=== PATIENT | male | born 1970 | race Caucasian/White ===

== ENCOUNTER 2021-01-05 21:03 | Observation (INO) | payer BC, SELFPAY ==
--- NOTE | ~2021-01-05 | XR_ITS ---
XR chest 2V DATE: 01/05/2021 21:27 INDICATION: Medial chest tightness. Recent hypertension. TECHNIQUE: PA and lateral views COMPARISON: 06/14/2015 PA and lateral chest FINDINGS: Normal heart size. No hilar or mediastinal enlargement. No pulmonary infiltrate or consol idation, pulmonary vascular congestion or pleural effusion or pneumothorax. Resection of lateral aspect of the right clavicle. IMPRESSION: No active cardiopulmonary disease Reviewed, dictated and finalized at location A.
--- NOTE | ~2021-01-05 | NM_ITS ---
EXAMINATION: NM stress w perf spect multi DATE: 01/06/2021 12:38 INDICATION: Chest pain. TECHNIQUE: Rest images were obtained following intravenous administration of 9.84 mCi Tc99m tetrofosm in (Myoview). The patient performed an exercise activity. At peak exercise, 30.6 mCi Tc99m tetrofosmi n (Myoview) was administered intravenously, and stress images were obtained. Data was reconstructed i nto short axis and horizontal and vertical long axis SPECT images. Gated SPECT images were also obtai bill. COMPARISON: None. FINDINGS: There is no definite reversible or fixed perfusion abnormality to suggest ischemia or infar ction. There is no segmental wall motion abnormality. Left ventricular ejection fraction measures 7 0%. IMPRESSION: 1. No definite ischemia or infarct. 2. Normal left ventricular ejection fraction measuring 70%. Reviewed, dictated and finalized at location A.
--- NOTE | 2021-01-05 21:06 | ECG_ITS ---
Measurements Intervals [place] Rate: 105 P: -2 RI: 124 QRS: 28 QRSD: 94 T: 0 QT: 322 QTc: 427 Interpretive Statements SINUS TACHYCARDIA NONSPECIFIC T-WAVE ABNORMALITY- INFERIOR LEADS BASELINE WANDER- AVL, AVF ABNORMAL ECG Electronically Signed On 01-05-2021 21:14:22 CDT by Steffen Herrera D.O.
[2021-01-05 21:13] VITALS: BP 158/105; PULSE 107; RESP 16; TEMP 36.6; O2SAT 98
[2021-01-05 21:20] LABS: Basophils Percent Auto 0.2 % (0.2-1.2); Eosinophils Absolute Auto 0.1 K/mm3 (0-0.3); Eosinophils Percent Auto 1.3 % (0-4.4); Hematocrit 47.3 % (42.0-52.0); Hemoglobin 16.2 g/dL (14.0-18.0); Immature Granulocyte Absolute 0.02 K/mm3 (0.00-0.031); Immature Granulocyte Percent A 0.2 % (0-0.5); Lymphocytes Absolute Auto 2.04 K/mm3 (0.9-3.2); Lymphocytes Percent Auto 22.6 % (18.3-44.2); Mean Corpuscular HGB Conc 34.2 g/dl (32-36); Mean Corpuscular Volume 93.5 fl (80-100); Mean Platelet Volume 9.5 fl (7.4-10.4); Monocytes Absolute Auto 0.9 K/mm3 (0.1-0.6); Monocytes Percent Auto 9.4 % (2.6-8.5); Neutrophils Percent Auto 66.3 % (45.5-73.1); Platelet Count Result 194 k/mm3 (150-375); Red Blood Count 5.06 M/mm3 (4.6-6.20); Red Cell Distribution Width 12.4 % (11.5-14.5)
[2021-01-05 21:29] LABS: INR 0.9; Prothrombin Time 12.2 Seconds (11.1-14.7)
[2021-01-05 21:30] LABS: Partial Thromboplastin Time 26.4 SECONDS (22.3-36.8)
[2021-01-05 21:43] LABS: Anion Gap 11 mmol/L (8-16); Blood Urea Nitrogen 11 mg/dL (9-20); Calcium 9.4 mg/dL (8.4-10.2); Carbon Dioxide 26 mmol/L (22-30); Chloride 97 mmol/L (98-107); Estimated Glomerular Filt Rate > 60; Glucose 126 mg/dL (65-110); Potassium 3.5 mmol/L (3.4-5.0); Sodium 134 mmol/L (137-145)
[2021-01-05 21:54] LABS: Troponin I < 0.012 ng/mL (0.000-0.034)
[2021-01-06] VITALS (10 sets, daily range): BP systolic 114–170; BP diastolic 70–108; PULSE 68–93; RESP 15–20; TEMP 36.6–36.8; O2SAT 96–99; BMI 41.6
--- NOTE | 2021-01-06 | EST_ITS ---
Patient Info Name: Ayaan Brownlee Age: 50 years : 1970 Gender: Male Ht: 74 in Wt: 324 lbs BSA: 2.83 m2 Exam Date: 01/06/2021 11:31 AM Exam Location: [facility] Stress Patient Status: Inpatient Admit Date: 01/06/2021 Staff Ordering Physician: Steffen Herrera DO Attending Provider: Steffen Herrera DO Exercise Technologist: Farnaz Lynn RDCS Exercise Physician: Steffen Herrera DO Exam Type: CA stress test treadmill w NM Study Info Indications R07.9 - Chest pain, unspecified A nuclear stress test was performed. Summary 1. 1. Negative Alvaro exercise stress test for ischemic ST changes by ECG criteria. 2. 2. Good functional capacity, achieving 10 METs of workload. 3. 3. Appropriate HR response to exercise. 4. 4. Appropriate HR recovery at 1 minute post exercise. 5. 5. Nuclear scan to follow and will be reported separately. Please correlate with it. 6. 6. Patient informed of the above results. Protocol: Alvaro Stress ECG Details Stage: REST Duration (min): 1 min : 9 sec Speed (mph): 0.0 Grade (%): 0 HR (bpm): 70 SBP (mmHg): 121 DBP (mmHg): 84 METS: --- Stage: REST Duration (min): 7 min : 43 sec Speed (mph): 0.0 Grade (%): 0 HR (bpm): 83 SBP (mmHg): 121 DBP (mmHg): 84 METS: --- Stage: STAGE 1 Duration (min): 1 min : 0 sec Speed (mph): 1.7 Grade (%): 10 HR (bpm): 96 SBP (mmHg): 121 DBP (mmHg): 84 METS: --- Stage: STAGE 1 Duration (min): 2 min : 0 sec Speed (mph): 1.7 Grade (%): 10 HR (bpm): 104 SBP (mmHg): 121 DBP (mmHg): 84 METS: --- Stage: STAGE 1 Duration (min): 3 min : 0 sec Speed (mph): 1.7 Grade (%): 10 HR (bpm): 106 SBP (mmHg): 151 DBP (mmHg): 84 METS: --- Stage: STAGE 2 Duration (min): 1 min : 0 sec Speed (mph): 2.5 Grade (%): 12 HR (bpm): 114 SBP (mmHg): 151 DBP (mmHg): 84 METS: --- Stage: STAGE 2 Duration (min): 2 min : 0 sec Speed (mph): 2.5 Grade (%): 12 HR (bpm): 121 SBP (mmHg): 151 DBP (mmHg): 84 METS: --- Stage: STAGE 2 Duration (min): 3 min : 0 sec Speed (mph): 2.5 Grade (%): 12 HR (bpm): 124 SBP (mmHg): 147 DBP (mmHg): 96 METS: --- Stage: STAGE 3 Duration (min): 1 min : 0 sec Speed (mph): 3.4 Grade (%): 14 HR (bpm): 139 SBP (mmHg): 147 DBP (mmHg): 96 METS: --- Stage: STAGE 3 Duration (min): 2 min : 0 sec Speed (mph): 3.4 Grade (%): 14 HR (bpm): 149 SBP (mmHg): 147 DBP (mmHg): 96 METS: --- Stage: STAGE 3 Duration (min): 2 min : 40 sec Speed (mph): 3.4 Grade (%): 14 HR (bpm): 154 SBP (mmHg): 147 DBP (mmHg): 96 METS: --- Stage: RECOVERY Duration (min): 0 min : 19 sec Speed (mph): 1.5 Grade (%): 0 HR (bpm): 155 SBP (mmHg): 147 DBP (mmHg): 96 METS: --- Stage: RECOVERY Duration
--- NOTE | 2021-01-06 | ECHO_ITS ---
Patient Info Name: Ayaan Brownlee Age: 50 years : 1970 Gender: Male Ht: 74 in Wt: 324 lbs BSA: 2.83 m2 HR: 59 bpm BP: 118 / 84 mmHg Technical Quality: Good Exam Date: 01/06/2021 8:57 AM Exam Location: [facility] Pulmonary Patient Status: Inpatient Admit Date: 01/06/2021 Staff Ordering Physician: Steffen Herrera DO Fly Setter: ELADIO Attending Provider: Steffen Herrera DO Referring Physician: Javier BROUSSARD; Exam Type: CA echo doppler color flow Study Info Indications R07.9 - Chest pain, unspecified Complete two-dimensional, color flow and Doppler transthoracic echocardiogram is performed. Summary 1. Complete two-dimensional, color flow and Doppler transthoracic echocardiogram is performed. 2. Left ventricular chamber dimension is normal. 3. Left ventricular systolic function is normal, estimated at 60-65%. 4. There is mildly increased left ventricular wall thickness. 5. The left ventricular diastolic function is normal. 6. E/e' 8 is minimally elevated. 7. No pulmonary hypertension, estimated pulmonary arterial systolic pressure is 12 mmHg. Left Ventricle E/e' 8 is minimally elevated. Left ventricular chamber dimension is normal. Left ventricular systolic function is normal, estimated at 60-65%. There is mildly increased left ventricular wall thickness. The left ventricular diastolic function is normal. Right Ventricle Right ventricular chamber dimension is normal. Right ventricular systolic function is normal. Left Atria Left atrial chamber dimension is normal. Right Atria Right atrial chamber dimension is normal. Aortic Valve The aortic valve is trileaflet. There is no aortic valve stenosis. There is no aortic valve regurgitation. Pulmonic Valve There is no pulmonic regurgitation. Mitral Valve There is no mitral valve stenosis. There is no mitral valve regurgitation. Tricuspid Valve There is no tricuspid valve regurgitation. No pulmonary hypertension, estimated pulmonary arterial systolic pressure is 12 mmHg. Pericardium/Pleural There is no pericardial effusion. Inferior Vena Cava Inferior vena cava is not well visualized. Aorta The aortic root size at the sinus of Valsalva is normal. Left Ventricular Outflow Tract Name Value Normal LVOT 2D LVOT Diameter 2.3 cm LVOT Doppler LVOT Peak Gradient 5 mmHg LVOT Mean Gradient 2 mmHg LVOT VTI 23 cm LVOT VTI/AV VTI Ratio 1.1 LVOT Stroke Volume 92 ml LVOT CO 16.5 l/min LVOT CI 5.8 l/min/m2 Mitral Valve Name Value Normal MV Doppler MV Decel [place] 587 cm/s2 MV PHT 43 ms MV Ar
--- NOTE | 2021-01-06 00:40 | ED.CHESTPAIN ---
HPI - Chest Pain General Chief Complaint: Chest Pain Stated Complaint: chest pain, onset this am Time Seen by Provider: 01/06/21 00:29 Source: patient Mode of arrival: ambulatory Limitations: no limitations History of Present Illness HPI narrative: Patient is a 50-year-old male complaining of chest pain, midsternal, pressure, 3 out of 10, nonradiating, intermittent, accompanied by nausea and diaphoresis started this morning. Patient denies any shortness of breath, abdominal pain, vomiting, fever or chills. Related Data Home Medications Medication Instructions Recorded Confirmed lisinopril 01/06/21 Allergies Allergy/AdvReac Type Severity Reaction Status Date / Time No Known Allergies Allergy Verified 01/06/21 00:32 Review of Systems Review of Systems: All systems reviewed & are unremarkable except as noted in HPI and below Constitutional: Constitutional: Denies body ache(s), Denies chills, Denies excessive sweating, Denies fatigue, Denies fever(s), Denies headache(s), Denies lethargy, Denies malaise, Denies weakness and Denies weight loss Eyes: Eyes: Denies blurry vision, Denies change in vision and Denies loss of vision ENT: Denies dizziness, Denies ear discharge, Denies headache(s), Denies lip swelling, Denies epistaxis, Denies nasal congestion, Denies neck pain, Denies throat swelling and Denies tongue swelling Cardiovascular: Cardiovascular: Denies diaphoresis, Denies rapid heart rate, Denies edema, Denies irregular heart rhythm, Denies lightheadedness, Denies palpitations, Denies dyspnea and Denies dyspnea on exertion Respiratory: Respiratory: Denies chest congestion, Denies cough, Denies hemoptysis, Denies dyspnea and Denies dyspnea on exertion Gastrointestinal: Gastrointestinal: Denies abdominal pain, Denies melena, Denies hematochezia, Denies diarrhea, Denies vomiting and Denies hematemesis Musculoskeletal: Musculoskeletal: Denies abnormal gait, Denies deformity, Denies joint swelling, Denies limited range of motion, Denies neck pain and Denies numbness Neurologic: Denies Abnormal speech present, Denies abnormal gait, Denies confusion, Denies dizziness, Denies headache(s), Denies focal weakness, Denies loss of vision, Denies numbness, Denies Other visual disturbances, Denies Sensory deficit (Neuro) and Denies weakness Psychiatric: Psychiatric: Denies confusion, Denies depression, Denies auditory hallucinations, Denies homicidal ideation and Denies suicidal ideation Endocrine: Endocrine: Denies cold intolerance, Denies excessive sweating, Denies fatigue, Denies heat intolerance and Denies palpitations Hematologic/Lymphatic: Hematologic/Lymphatic: Denies easy bleeding and Denies easy bruising Allergic/Immunologic: Allergic/Immunologic: Denies lip swelling, Denies throat swelling and Denies tongue swelling Exam Const: General: cooperative, healthy appearing, comfortable, no acute distress, well developed, alert and awake; No confusion Orientation/consciousness: oriented to person, oriented to place, oriented to time, patient oriented x3 and No confusion Limitations: no limitations HENMT: Head: normal to inspection, normocephalic and atraumatic Ears: hearing grossly normal bilaterally, TM normal on the right and TM normal on the left General nose exam: Normal external nose present, Normal nares present and No nasal discharge present Face and sinus: normal facial exam Mouth: Yes Normal oral and palatal mucosa present, Yes lip normal, Yes tongue normal and Yes oropharynx normal Throat: posterior oropharynx normal, tonsils normal and uvula midline Eyes: General: appearance normal, both eyes and all related structures Pupils: Equal, round and reactive pupils present EOM: EOMs intact bilaterally Neck: Neck: normal visual inspection, full ROM, no lymphadenopathy and no meningeal signs Chest: Chest palpation & inspection: normal inspection of the chest Resp: Effort & Inspection: normal respiratory effort, able to
[2021-01-06 01:32] LABS: Troponin I < 0.012 ng/mL (0.000-0.034)
[2021-01-06] MEDS: NITROGLYCERIN OINTMENT 1 INCH DOSE TRANSDERM (01:36)
--- NOTE | 2021-01-06 03:20 | PC.NURSE ---
This patient, Ayaan Brownlee, was admitted to IMU Room 205-01 on 01/06/21 at 0315. Patient/family oriented to hospital policies and general routines including ID bracelet, bed and alarms, visiting hours, pain management, procedures, bathroom and other care routines, personal items, smoking policy, room service/diet, and visiting hours. Information on how to activate the Rapid Response Team has been discussed. Patient/Family are encouraged to report perceived risks to care and to ask questions if they do not understand what they are told or what they should do.
[2021-01-06 04:32] LABS: Troponin I < 0.012 ng/mL (0.000-0.034)
--- NOTE | 2021-01-06 08:17 | PM.IMHP ---
H&P: HPI History of Present Illness Date/Time: 01/06/21 08:17 Reason for admit: Chest pain. 50 yr old man presented to ER last night for chest pain. He has a history of hypertension and family history of CAD with CABG in his father at age 70. States he had gone out to eat and had 4 beers the night before, then the next morning he felt constant chest tightness in mid chest all day with diaphoresis and nausea and lightleadedness. Troponin is negative x 3. EKG shows sinus tachycardia at 105 bpm, borderline T wave in inferior leads. CXR is normal. HE can walk 1 mile without any problems. States he's been to hospital for the same about 5 times in last 10 years and was sent home without knowing what caused it. Chief Complaint: Chest pain Review of Systems Review of Systems: All systems reviewed & are unremarkable except as noted in HPI and below Constitutional: Constitutional: Reports as per HPI, Denies chills and Denies fever(s) Cardiovascular: Cardiovascular: Reports as per HPI, Reports chest pain, Denies leg edema and Reports lightheadedness Respiratory: Respiratory: Reports as per HPI and Denies dyspnea Gastrointestinal: Gastrointestinal: Reports as per HPI, Denies abdominal pain and Reports nausea Genitourinary: Genitourinary: Reports as per HPI and Denies dysuria Musculoskeletal: Musculoskeletal: Reports as per HPI Neurologic: Reports as per HPI, Reports dizziness and Denies syncope [facility] Family History Family History (Updated 01/06/21 @ 03:34 by Lauren Ashford RN) Father Hypertension Social History Social History Smoking status: Never smoker Alcohol intake: current Drinks per week: 15 Substance use: never Spiritual care concerns: No Meds Home Medications and Allergies Home Medications Medication Instructions Recorded Confirmed Type hydrochlorothiazide 12.5 mg PO DAILY 01/06/21 01/06/21 History Allergies Allergy/AdvReac Type Severity Reaction Status Date / Time No Known Allergies Allergy Verified 01/06/21 03:17 Vital Signs Vital Signs - 24 hr 01/05/21 21:13 01/06/21 00:10 01/06/21 00:29 Temperature 97.9 F 97.8 F Pulse Rate 107 H 93 88 Respiratory Rate 16 15 Blood Pressure 158/105 H 133/92 H 132/85 Pulse Oximetry 98 98 97 01/06/21 01:40 01/06/21 03:30 01/06/21 04:00 Temperature 98.0 F Pulse Rate 68 81 68 Respiratory Rate 16 18 Blood Pressure 117/70 118/84 Pulse Oximetry 97 99 01/06/21 06:00 01/06/21 08:00 Temperature 98.1 F Pulse Rate 70 75 Respiratory Rate 18 Blood Pressure 114/75 Pulse Oximetry 97 Exam Const: General: cooperative, healthy appearing and comfortable Nutritional Appearance: obese Resp: Auscultation: clear to auscultation bilaterally, no crackles, no rales and no wheezes Cardio: Jugular venous distension: no JVD Rate: regular rate Rhythm: regular rhythm Heart sounds: no murmurs Peripheral pulses: dorsalis pedis present GI: GI Palp: No abdominal tenderness and Yes Soft to palpation Neuro: General: oriented to person, oriented to place and oriented to time Extrem: Right lower extremity: no edema Left lower extremity: no edema H&P: Results Labs Labs: Short CBC 01/05/21 Range/Units 21:12 WBC 9.0 (4.5-10.0) K/mm3 Hgb 16.2 (14.0-18.0) g/dL Hct 47.3 (42.0-52.0) % Plt Count 194 (150-375) k/mm3 BMP 01/05/21 21:12 Sodium 134 L Potassium 3.5 Chloride 97 L Carbon Dioxide 26 BUN 11 Creatinine 1.00 Glucose 126 H Calcium 9.4 Cardiac Enzymes 01/05/21 01/06/21 01/06/21 Range/Units 21:12 01:01 03:25 Troponin I < 0.012 < 0.012 < 0.012 (0.000-0.034) ng/mL Assessment and Plan Assessment and plan (1) Hypertension: Code(s): I10 - Essential (primary) hypertension Status: Acute Assessment and Plan: Stable. On home HCTZ. (2) Chest pain: Qualifiers: Chest pain type: unspecified Qualified Code(s): R07.9 - Chest pain, unspecified
--- NOTE | 2021-01-06 13:46 | PM.DS ---
DS: Admitting Diagnosis Admitting Diagnosis Chest pain DS: Summary Hospital Course Hospital Course: Same day discharge summary, please refer to admit note for more details. Patient is r/o for MD by troponin and EKG. He had treadmill nuclear stress test that is normal. Echo is normal. His chest tightness is intermittent and had resolved by morning. This is likely non-cardiac chest pains. His BP is high at 170/109 and states at home it is 140-150 systolic. Will change HCTZ 12.5 mg daily to Losartan 50/12.5 mg BID. D/C home. Diet: Heart healthy. Activity: As tolerated. F/U with me in 1-2 weeks. Time Spent with Patient Time attestation: Total time spent providing and/or coordinating discharge services:<30 MIN. DS: Data Data Completed and Pending Labs on day of discharge: Labs from last 24 hours 01/06/21 01/06/21 01/05/21 03:25 01:01 21:12 WBC RBC Hgb Hct MCV MCH MCHC RDW Plt Count MPV Immature Gran % (Auto) Neut % (Auto) Lymph % (Auto) [place] % (Auto) Eos % (Auto) Baso % (Auto) Lymph # (Auto) [place] # (Auto) Eos # (Auto) Baso # (Auto) Abs Immat Gran (auto) Absolute Neuts (auto) Absolute Nucleated RBC Nucleated RBC % PT INR APTT Sodium 134 L Potassium 3.5 Chloride 97 L Carbon Dioxide 26 Anion Gap 11 BUN 11 Creatinine 1.00 Estim Creat Clear Calc Not Reportable Estimated GFR > 60 Glucose 126 H Calcium 9.4 Troponin I < 0.012 < 0.012 < 0.012 01/05/21 01/05/21 21:12 21:12 WBC 9.0 RBC 5.06 Hgb 16.2 Hct 47.3 MCV 93.5 MCH 32.0 MCHC 34.2 RDW 12.4 Plt Count 194 MPV 9.5 Immature Gran % (Auto) 0.2 Neut % (Auto) 66.3 Lymph % (Auto) 22.6 [place] % (Auto) 9.4 H Eos % (Auto) 1.3 Baso % (Auto) 0.2 Lymph # (Auto) 2.04 [place] # (Auto) 0.9 H Eos # (Auto) 0.1 Baso # (Auto) 0.0 Abs Immat Gran (auto) 0.02 Absolute Neuts (auto) 6.0 Absolute Nucleated RBC 0.0 Nucleated RBC % 0.0 PT 12.2 INR 0.9 APTT 26.4 Sodium Potassium Chloride Carbon Dioxide Anion Gap BUN Creatinine Estim Creat Clear Calc Estimated GFR Glucose Calcium Troponin I Discharge Plan Discharge Discharging Clinician: Steffen Herrera Patient Disposition: Home, Self-Care Activity: as tolerated Diet: heart healthy Patient Instructions: Antibiotic Form Stand Alone Forms: General Discharge Information Follow-up/Referrals: Steffen Herrera, [Physician] - Discharge Medications: New losartan-hydrochlorothiazide 50-12.5 mg tablet 1 tablet PO BID Qty: 60 RF: 5 Discontinued hydrochlorothiazide 12.5 mg tablet 12.5 mg PO DAILY RF: 0 Date of admission: 01/06/21 02:27 Primary Care Provider: Jordan Boyd Admitting Provider: Steffen Herrera Attending physician on admission: Steffen Herrera Condition: Stable
[2021-01-06] MEDS: LOSARTAN POTASSIUM 50 MG TABLET PO (13:52)
[2021-01-06] MEDS: hydroCHLOROthiazide 12.5 MG CAPSULE PO (13:52)
== END 2021-01-06 15:28 | disposition home or self-care (01) ==
LOC: ANHED 01-06 01:02 → ANHIMU 01-06 02:47
PROVIDERS: Emergency Medicine; Admitting Provider Internal Medicine Cardiovascular Disease; Emergency Provider Emergency Medicine; PCP Pediatrics; Visit Provider Internal Medicine Cardiovascular Disease
DX: R07.89 Other chest pain (principal); I10 Essential (primary) hypertension
CPT/HCPCS: 36415; 71046; 78452; 80048; 84484; 85025; 85610; 85730; 93005; 93017; 93306; 99285; A9270; A9502; G0378

== ENCOUNTER 2021-09-10 15:33 | Emergency (ER) | payer BC, SELFPAY ==
--- NOTE | ~2021-09-10 | CT_ITS ---
EXAMINATION: CTA brain carotid DATE: 09/10/2021 16:46 INDICATION: Dizziness TECHNIQUE: Computed tomographic angiography (CTA) of the head was performed without and with 100 mL O mnipaque-350 intravenous contrast. CTA of the neck was performed with intravenous contrast. Automated exposure control and iterative reconstruction technique were employed. The dose-length product was 2 002.38 mGy-cm. Maximum intensity projection and volume rendered 3D-reconstructions were created by robina gomez technologist on a separate workstation. COMPARISON: None. FINDINGS: Brain CT: No acute large vessel infarct, intracranial hemorrhage, mass, or hydrocephalus. HEAD CTA: No large vessel occlusion, aneurysm, high flow vascular malformation, nidus or extravasatio n. NECK CTA: Right common carotid, carotid bifurcation, and internal carotid artery are patent, without stenosis. No significant atherosclerosis. Left common carotid, carotid bifurcation, and internal cooper tid artery are patent, without stenosis. No significant atherosclerosis. There is 0% stenosis of the proximal right internal carotid artery relative to normal distal artery l umen diameter (NASCET criteria). There is 0% stenosis of the proximal left internal carotid artery re lative to normal distal artery lumen diameter. Vertebral arteries: Patent, without significant stenosis. Other findings: Cardiomegaly. IMPRESSION: 1. 0% stenosis of the proximal right internal carotid artery relative to normal distal artery lumen d iameter (NASCET criteria). 2. 0% stenosis of the proximal left internal carotid artery relative to normal distal artery lumen di ameter. 3. Patent head and neck arteries, without significant stenosis or large vessel occlusion. 4. No acute intracranial process. Reviewed, dictated and finalized at location K. IMPRESSION: 1. 0% stenosis of the proximal right internal carotid artery relative to normal distal artery lumen diameter (NASCET criteria). 2. 0% stenosis of the proximal left internal carotid artery relative to normal distal artery lumen diameter. 3. Patent head and neck arteries, without significant stenosis or large vessel occlusion. 4. No acute intracranial process.
--- NOTE | ~2021-09-10 | XR_ITS ---
EXAMINATION: XR chest 1V portable Exam Date/Time: 09/10/2021 16:00 CDT CLINICAL HISTORY: dizziness, BLURRY VISION Comparison: 01/05/2021. RESULT: Lines, tubes, and devices: None. Lungs and pleura: Bibasilar scar/atelectasis. Cardiomediastinal silhouette: Stable cardiomediastinal silhouette. Other: No acute osseous or upper abdominal finding. IMPRESSION: No acute cardiopulmonary process Reviewed, dictated and finalized at location K.
--- NOTE | 2021-09-10 15:36 | ECG_ITS ---
Measurements Intervals [place] Rate: 82 P: 4 NC: 158 QRS: 18 QRSD: 91 T: 1 QT: 367 QTc: 429 Interpretive Statements SINUS RHYTHM COMPARED TO ECG 01/05/2021 21:09:26 THE PATIENT IS NO LONGER TACHYCARDIC Electronically Signed On 09-10-2021 16:19:17 CDT by Beth Orantes M.D.
[2021-09-10 15:37] VITALS: BP 147/89; PULSE 80; RESP 18; TEMP 36.3; O2SAT 99
--- NOTE | 2021-09-10 15:52 | ED.DIZZY ---
HPI - Dizziness General Chief Complaint: Dizziness Stated Complaint: blurred vision, left hand numbness Time Seen by Provider: 09/10/21 15:40 History of Present Illness HPI Narrative: pt says went to bed sun fine woke up to go to work dizzy and b/l eye blurry vision not light headed worse with movement and no vision loss/curtain/flashes of lt or stahl/other neuro chagnes and mild ringing in ears. no f/uri/cp/sob/n/v/d/abd pain. on/off each day never had before. no uri issues. today sweaty and nauseated when trying to eat lunch came in. Related Data Home Medications Medication Instructions Recorded Confirmed losartan 50 mg-hydrochlorothiazide 1 tablet PO ONCE tablet 02/03/21 12.5 mg tablet Allergies Allergy/AdvReac Type Severity Reaction Status Date / Time No Known Allergies Allergy Verified 02/03/21 13:37 Review of Systems Review of Systems: CONSTITUTIONAL: Denies fever, chills, or sweats. EYES: , redness, or discharge. ENT: Denies rhinorrhea, congestion, sore throat, or otalgia. CARDIOVASCULAR: Denies chest pain, palpitations, or edema. RESPIRATORY: Denies cough or dyspnea. GASTROINTESTINAL: Denies abdominal pain, nausea, vomiting, or diarrhea. GENITOURINARY: Denies dysuria or hematuria. SKIN: Denies rash or itching. MUSCULOSKELETAL: Denies back pain, joint pain, or myalgia. NEUROLOGIC: Denies headache, numbness, or weakness. is dizzy and blurry vision PSYCHIATRIC: Denies anxiety or depression. [facility] Family History Family History Father Hypertension Social History Social History Smoking status: Never smoker Alcohol intake: current Drinks per week: 15 Substance use: never Spiritual care concerns: No Exam Narrative: APPEARANCE: Well appearing, no pain in distress, well-nourished. Head normocephalic atraumtaic. EYES: PERRLA/EOMI, conjunctivae very clear. has horz nystagmus limited not vertical or roatary and doesn't make him dizzy NOSE: Normal no drainage EARS:TMS clear Marilia Babb, with good light reflex. THROAT: Pharynx clear, no exudate. NECK: Supple. No adenopathy, no masses. RESPIRATORY: Airway patent, repsirations nonlabored. Clear to auscultation bilaterally, no rales, rhonchi, wheezing. CARDIOVASCULAR: Regular rate and rhythm without murmurs rubs or gallops. ABDOMINAL: Soft, nontender, nondistended, no hepatosplenomegally MUSCULOSKELETAl: Moves all extremities. Strenght/ROM intact, No edema, No calf tenderness. NEURO: Alert. Cranial nerves II through XII intact. Good gait. Good coordination SKIN:: Warm, dry. Normal Color PSYCHIATRIC: Normal affect/mood, normal interaction with parents. Course Reevaluation(s) Reevaluation #1: updated pt on results walking around bed no issues standing fine and pt says some mild help with meds but symptoms still there good with plan to try meds at home, have pt read eye chart, says last eye check 6 months ago distance ok needs reading glasses cheaters no rx yet back then and f/u his doc given tests wnl here Date: 09/10/21 Time: 17:42 Vital Signs Vital signs: Vital Signs Temperature 36.3 C L 09/10/21 15:37 Pulse Rate 80 09/10/21 15:37 Respiratory Rate 18 09/10/21 15:37 Blood Pressure 147/89 H 09/10/21 15:37 Pulse Oximetry 99 09/10/21 15:37 Temperature 36.3 C L 09/10/21 15:37 Pulse Rate 75 09/10/21 17:30 Respiratory Rate 18 09/10/21 17:30 Blood Pressure 143/98 H 09/10/21 17:30 Pulse Oximetry 96 09/10/21 17:30 MDM - Dizziness Differential Diagnosis Differential diagnosis: Likely benign paroxysmal positional vertigo, vertebral basilar insufficiency and cerebrovascular accident Lab Data Attestation: I reviewed the patient's lab results. Result diagrams: 09/10/21 15:51 09/10/21 15:51 Labs: Lab Results 09/10/21 09/10/21 09/10/21 Range/Units 15:51 15:51 15:51 WBC 9.3
[2021-09-10 16:17] LABS: Basophils Percent Auto 0.3 % (0.2-1.2); Eosinophils Percent Auto 0.3 % (0-4.4); Hematocrit 46.2 % (42.0-52.0); Hemoglobin 15.3 g/dL (14.0-18.0); Immature Granulocyte Absolute 0.05 K/mm3 (0.00-0.031); Immature Granulocyte Percent A 0.5 % (0-0.5); Lymphocytes Absolute Auto 1.14 K/mm3 (0.9-3.2); Lymphocytes Percent Auto 12.3 % (18.3-44.2); Mean Corpuscular HGB Conc 33.1 g/dl (32-36); Mean Corpuscular Hemoglobin 31.7 pg (26-34); Mean Corpuscular Volume 95.7 fl (80-100); Mean Platelet Volume 10.1 fl (7.4-10.4); Monocytes Absolute Auto 0.8 K/mm3 (0.1-0.6); Monocytes Percent Auto 8.4 % (2.6-8.5); Neutrophils Absolute Auto 7.3 K/mm3 (1.3-6.7); Neutrophils Percent Auto 78.2 % (45.5-73.1); Platelet Count Result 164 k/mm3 (150-375); Red Blood Count 4.83 M/mm3 (4.6-6.20); Red Cell Distribution Width 12.6 % (11.5-14.5); White Blood Count 9.3 K/mm3 (4.5-10.0)
--- NOTE | 2021-09-10 16:22 | PC.NURSE ---
pt in cat scan at this time.
[2021-09-10 16:25] LABS: Alanine Aminotransferase 44 U/L (4-50); Albumin Level 4.7 g/dL (3.5-5.1); Alkaline Phosphatase 100 U/L (38-126); Anion Gap 9 mmol/L (8-16); Aspartate Amino Transferase 29 U/L (17-59); Bilirubin,Total 0.7 mg/dL (0.2-1.3); Blood Urea Nitrogen 18 mg/dL (9-20); Calcium 9.3 mg/dL (8.4-10.2); Carbon Dioxide 27 mmol/L (22-30); Chloride 101 mmol/L (98-107); Estimated CRCL calculation 105 ml/min; Estimated Glomerular Filt Rate > 60; Glucose 116 mg/dL (65-110); Potassium 3.7 mmol/L (3.4-5.0); Sodium 137 mmol/L (137-145)
[2021-09-10 16:31] LABS: Partial Thromboplastin Time 26.4 SECONDS (22.3-36.8)
[2021-09-10] MEDS: MECLIZINE HCL 25 MG TABLET PO (16:36)
[2021-09-10 16:37] LABS: Troponin I < 0.012 ng/mL (0.000-0.034)
[2021-09-10] MEDS: ONDANSETRON INJ 4 MG/2 ML VIAL IV PUSH (16:37)
[2021-09-10 17:30] VITALS: BP 143/98; PULSE 75; RESP 18; O2SAT 96
[2021-09-10 17:52] VITALS: BP 144/72; PULSE 78; RESP 17; O2SAT 99
== END 2021-09-10 17:54 | disposition home or self-care (01) ==
PROVIDERS: Emergency Medicine; Emergency Provider Emergency Medicine; PCP Pediatrics
DX: R42 Dizziness and giddiness (principal)
CPT/HCPCS: 36415; 70496; 70498; 71045; 80053; 84484; 85025; 85610; 85730; 93005; 96374; 99284; A9270; J2405; Q9967

== ENCOUNTER 2021-10-20 00:59 | Day surgery (SDC) | payer BC, SELFPAY ==
[2021-10-18 09:52] VITALS: BMI 41.1
--- NOTE | 2021-10-18 09:55 | PC.NURSE ---
Report to the Outpatient Waiting Room, entrance under the green pavilion located off [facility], at 1000 on 10-20-21. OR Time: 1200. - You and your visitor will be asked a series of questions to screen for COVID 19 for your protection. - Only one visitor is allowed at this time. - The patient visitor is requested to leave or wait in car when not with patient. - A mask is required within the hospital. Patients may have clear liquids (water, carbonated beverages, clear teas, apple juice) until 3 hours prior to surgery with a maximum of 20 ounces. 0900 - No food from midnight until time of surgery - Infants may have breast milk until 4 hours before surgery, infant formula 6 hours prior to surgery. - Children will be allowed to drink immediately following surgery. If applicable, please bring a bottle or sippy cup to assist with drinking. Juice, water, soda, and popsicles are readily available. For infants on formula, please bring formula the day of surgery. Pacifiers are allowed. Take the following medications with a SIP of water the morning of surgery: aspirin Medications to discontinue per physician: vitamins and supplements Date to take last dose: 10-18-21 Please no make-up, nail divehi, hairspray, perfume, deodorant, or body powder the day of surgery. No jewelry (including any body piercings) or valuables the day of surgery, leave them at home. Please take a shower or bath the night before, or the morning of, surgery with an antibacterial soap. Hibiclens Wear comfortable, loose fitting clothing. Children are encouraged to wear pajamas. - Jewelry must be removed prior to entering the operating room. Rings and piercings that are not removed may be cut off. - The hospital will not accept responsibility for valuables. - Please leave all valuables, including medications, at home the day of surgery. If you are going home after surgery, a licensed o[employer] company driver must drive you home. - NO public transportation without another adult. - We recommend that an adult stay with you for 24 hours following discharge. - We also recommend that you do not drive, make important decision, drink alcoholic beverages, or take any drugs that were not prescribed by your health care provider for at least 24 hours after your discharge time. For Pediatric surgeries, we recommend two adults accompany the child home (only one inside the building at this time). Follow any additional instructions given to you from your surgeon. If you or anyone in your household have experienced Covid symptoms in the past week, please notify your surgeon or the nurse liaison at the phone number below for possible testing. Telephone instructions given to Ayaan Brownlee and asked if any additional questions and then verbalized understanding. Patient advised to call surgeon office or pre surgery nurse liaison [phone] if any additional questions.
--- NOTE | 2021-10-19 09:10 | WPDANESEPPF ---
Anes - Initial Pre Proc Eval Procedure: Operation Date: 10/20/21 12:00 Proposed Procedures p Open Repair Ventral and Umbilical Hernia with Mesh - Jareth Ladd MD Date/Time: 10/19/21 09:10 Surgeon: Jareth Ladd MD Pre Op Diagnosis: ventral and umbilical hernia Patient Data Age: 51 Gender: M Height: 1.88 m Weight: 145.15 kg Allergies Allergy/AdvReac Type Severity Reaction Status Date / Time No Known Allergies Allergy Verified 10/20/21 10:30 Home Medications Medication Instructions Recorded Confirmed Type losartan 50 mg-hydrochlorothiazide 1 tablet PO ONCE 02/03/21 10/20/21 History 12.5 mg tablet aspirin 81 mg capsule 81 mg PO DAILY 09/19/21 10/20/21 History multivitamin 1 tablet PO DAILY 09/19/21 10/20/21 History ubidecarenone-omega 3-vit E 25 1 cap PO DAILY 09/19/21 10/20/21 History mg-150 (90-60) mg-200 unit capsule (Co E-95-Qsssuia E-Fish Oil) ECG: Date of Service: 09/10/21 Procedure(s): CA 12 lead EKG Accession Number(s): [id number] cc: ~ ? Measurements Intervals? Long Eddy? Rate: ? 82 ? P:? 4 NC: ? 158? QRS:? 18 QRSD: ? 91 ? T:? 1 QT: ? 367? QTc:? 429? Interpretive Statements SINUS RHYTHM COMPARED TO ECG 01/05/2021 21:09:26 THE PATIENT IS NO LONGER TACHYCARDIC Electronically Signed On 09-10-2021 16:19:17 CDT by Beth Orantes M.D. Other studies: Admit Date: ? ? 01/06/2021 Staff Ordering Physician: ? ? Steffen Herrera DO [facility]: ? ? ELADIO Attending Provider: ? ? Steffen Herrera DO Referring Physician: ? ? Javier BROUSSARD; Exam Type: ? ? CA echo doppler color flow Study Info Indications ? ? R07.9 - Chest pain,? unspecified Complete two-dimensional, color flow and Doppler transthoracic echocardiogram is performed. Account #: ? ? [id number] Summary ? 1. Complete two-dimensional, color flow and Doppler transthoracic echocardiogram is performed. ? 2. Left ventricular chamber dimension is normal. ? 3. Left ventricular systolic function is normal, estimated at 60-65%. ? 4. There is mildly increased left ventricular wall thickness. ? 5. The left ventricular diastolic function is normal. ? 6. E/e' 8 is minimally elevated. ? 7. No pulmonary hypertension, estimated pulmonary arterial systolic pressure is 12 mmHg. Patient hx anesthesia problems: none Family hx anesthesia problems: none Results Review: All pre-operative results and documents have been reviewed as part of the pre-operative evaluation. [facility] Past Medical History Medical History (Updated 10/20/21 @ 11:23 by Darrel Brown MD) Body mass index (BMI) of 40.1 to 44.9 in adult Hypertension Morbid obesity with BMI of 40.0-44.9, adult Umbilical hernia Ventral hernia Surgical History Surgical History History of appendectomy History of carpal tunnel release Hx of inguinal hernia repair RIGHT SIDE Family History Family History Father Hypertension Mother Parkinsons Social History Social History Smoking status: Never smoker Second hand tobacco smoke exposure: No Alcohol intake: current Drinks per week: 15 Alcohol use details: socially Substance use: never Substance use type: does not use Living arrangements: alone Additional occupation/education comments: [employer] Spiritual care concerns: No Anes - Eval Final PreProcedure Day of Procedure 10/19/21 09:10 Patient weight: morbidly obese Heart: regular rate and rhythm Lungs: clear to auscultation and normal air movement Airway: Mallampati scale class II Ne
[2021-10-20 10:23] VITALS: BP 131/81; PULSE 76; RESP 18; TEMP 37.1; O2SAT 97
[2021-10-20] MEDS: LACTATED RINGERS 1,000 ML 30 ML IV CONT ×2 (10:58→14:11)
[2021-10-20] MEDS: ACETAMINOPHEN 500 MG TABLET 1000 MG PO (10:58)
[2021-10-20] MEDS: KETOROLAC 15 MG/ML VIAL (*BKC) IV PUSH (10:58)
--- NOTE | 2021-10-20 12:11 | WPDHPUPDATE1 ---
History and Physical Update Update Date/Time: 10/20/21 12:11 History and Physical has been reviewed, including an updated exam of the patient. There are NO changes in the patient's condition. Risks, benefits, and alternatives have been discussed and questions answered. Patient agrees to proceed with procedure.
[2021-10-20] MEDS: ceFAZolin 3 GM/D5W 100 ML 100 ML IVPB (12:16)
[2021-10-20 14:11] VITALS: BP 100/73; PULSE 77; RESP 14; TEMP 36.5; O2SAT 96
--- NOTE | 2021-10-20 14:26 | W.PM.PROC2 ---
Procedure Note - Detailed Date of Procedure 10/20/21 Pre-op Diagnosis ventral and umbilical hernia Post-op Diagnosis Same Procedure Performed Repair ventral hernia with [address] underlay mesh Surgeon Jareth Ladd MD [employer] Feroz ALLEN Anesthesia General (G IV S) and Local (0.5% Marcaine) Indications Patient is a 51-year-old man with a supraumbilical ventral hernia as well as a smaller umbilical hernia. This is been painful for him and he is taken to surgery now for repair both hernias. Findings The ventral hernia was the larger of the 2 hernias with a defect of 1.5 cm. There was a proximally 1 cm of fascial bridge between the 2 defects. The umbilical hernia was much smaller being slit like and only about 4 mm in craniocaudad dimension and 1 cm transverse dimension. Description of Procedure The patient was checked in the preoperative holding area. He was then taken to surgery. Anesthesia was introduced. The abdomen is prepped and draped. A curved supraumbilical incision was marked on the skin paralleling the upper margin of the umbilicus. Local anesthetic was infiltrated in the anticipated incision and in the subcutaneous. Incision was made and dissection was carried down through the subcutaneous. The hernia sac for the ventral hernia was noted 1st. We dissected the hernia sac from the surrounding subcutaneous and dissected circumferentially down to the fascia. I then divided the hernia sac at the neck of the hernia, just above the fascia, and excised the hernia sac completely. There was omentum in the hernia. The omentum was freed from the hernia sac. The sac was sent as a specimen. The omentum was placed back in the abdomen. Cautery was used for hemostasis. We then turned our attention to the more caudad umbilical hernia. We dissected around the hernia sac circumferentially. I was then able to place a finger completely around the umbilical hernia sac. I exposed the neck of the hernia and again divided the hernia sac at the fascial edge. There was also some omentum in the hernia. The hernia defect was smaller as noted above. There was a cm or less between the 2 hernias. I excised the hernia sac from the umbilical skin. This hernia sac was discarded. I undermined the subcutaneous all around the 2 hernia defects to facilitate placement of the transfascial sutures later in the surgery. Cautery was used for hemostasis. And then put a finger in the larger of the 2 hernias and checked for any adhesions to the anterior abdominal wall or any occult hernias. All looked good. I then divided the fascia between the 2 hernias making 1 defect. An [address] hernia patch was chosen. It was placed in the defect and position symmetrically. Cranial and caudal transfascial sutures of 0 Ethibond were then placed. These were placed in such a fashion as to advance a edges of the hernia defect towards 1 another. I tied down the suture and they had the desired effect. I cut the straps to the hernia mesh. I then placed right and left lateral transfascial sutures of 0 Ethibond. These also incorporated a bit of mesh. The mesh was pulled taut and was snug underneath the hernia defect. I then closed the hernia defect with [id number] mattress sutures of 0 Ethibond. Each of these sutures incorporated a bit of mesh as well. All looked good. I checked the entire wound for any bleeding and found none. I then used 3-0 Vicryl suture and sutured the umbilical skin to the fascia with 2 interrupted suture. The subcutaneous was then closed with interrupted 3-0 Vicryl suture. The skin was loosely approximated with interrupted 3-0 and 4-0 Vicryl subcuticular suture. The skin was finally closed with a running 4-0 Monocryl skin suture. The wound was dressed with Exofin surgical adhesive. The patient was awakened and taken to outpatient recovery in good condition. Sponge and needle counts were correct x2. Implants [address] hernia
[2021-10-20 14:35] VITALS: BP 106/67; PULSE 74; RESP 14; O2SAT 99
[2021-10-20 15:00] VITALS: BP 124/73; PULSE 58; RESP 14
== END 2021-10-20 15:10 | disposition home or self-care (01) ==
PROVIDERS: PCP Pediatrics; Visit Provider Surgery
PROC: 0WQF0ZZ Repair Abdominal Wall, Open Approach (ICD-10-PCS; CPT 49560; principal; 2021-10-20 12:00)
DX: K43.9 Ventral hernia without obstruction or gangrene (principal); K42.9 Umbilical hernia without obstruction or gangrene; R07.9 Chest pain, unspecified; I10 Essential (primary) hypertension; E66.01 Morbid (severe) obesity due to excess calories; Z68.39 Body mass index [BMI] 39.0-39.9, adult
CPT/HCPCS: 49560; 49568; 88302; A9270; C1781; J0690; J1170; J1885; J2250; J2704; J3010; J7120